=== PATIENT | female | born 1980 | race Two or more races ===

== ENCOUNTER 2017-03-15 19:10 | Emergency (ER) | payer MEDICAID, OTHER ==
[~2017-03-15] VITALS: Ht 175.3 cm; Wt 47.4 kg
[2017-03-15 20:35] VITALS: BP 125/95
== END 2017-03-15 20:30 | disposition left against medical advice (07) ==
LOC: ER 19:11
DX: F41.9 Anxiety disorder, unspecified (principal); F32.9 Major depressive disorder, single episode, unspecified; Z53.21 Procedure and treatment not carried out due to patient leaving prior to being seen by health care provider